=== PATIENT | male | born 1995 | race Caucasian/White ===

== ENCOUNTER 2016-11-22 09:01 | Emergency (ER) | payer SELFPAY | END 2016-11-22 09:40 | disposition home or self-care (01) | LOC: SCSER 09:01 | DX: J02.9 Acute pharyngitis, unspecified (principal); I49.9 Cardiac arrhythmia, unspecified; I48.91 Unspecified atrial fibrillation; I10 Essential (primary) hypertension; Z87.891 Personal history of nicotine dependence | CPT/HCPCS: 87081; 87430; 99283 ==

== ENCOUNTER 2018-03-15 07:35 | Outpatient (CLI) | payer OTHER ==
[2018-03-15 16:50] LABS: #Basophils 0.1 thou/uL (0.0-0.2); #Eosinphils 0.2 thou/uL (0.0-0.7); #Lymphocytes 2.6 thou/uL (1.20-3.40); #Monocytes 0.4 thou/uL (0.11-0.59); #Neutrophils 4.9 thou/uL (1.40-6.50); %Basophils 0.9 % (0.0-1.0); %Eosinophils 1.9 % (0.0-10.0); %Lymphocytes 32.2 % (21.0-51.0); %Monocytes 5.3 % (0.0-10.0); %Neutrophils 59.8 % (42.0-75.0); Hemoglobin 15.5 g/dL (14.0-18.0); Mean Corpuscular HGB CONC 34.7 g/dL (32.0-36.0); Mean Corpuscular Hemoglobin 31.1 pg (27.0-31.0); Mean Corpuscular Volume 89.4 fL (78.0-98.0); Mean Platelet Volume 6.6 fL (7.4-10.4); Platelet Count 266 thou/uL (130-400); RBC Distribution Width 11.4 % (11.5-14.5); Red Blood Cell (RBC) Count 4.98 mill/uL (4.70-6.10); White Blood Cell (WBC) Count 8.1 thou/uL (4.8-10.8)
[2018-03-15 17:10] LABS: Anion Gap 10 mmol/L (10-20); BUN (Urea Nitrogen) 14 mg/dL (8.9-20.6); Calc. Creatinine Clearance 0 mL/min (70-130); Carbon Dioxide 28 mmol/L (22-29); Chloride 105 mmol/L (98-107); Estimated GFR-MDRD 58; Glucose 101 mg/dL (70-105); Potassium 4.2 mmol/L (3.5-5.1); Sodium 139 mmol/L (136-145)
== END 2018-03-15 07:36 | disposition home or self-care (01) ==
LOC: LABBT 07:35
PROVIDERS: ATTEND Specialist
DX: Z01.812 Encounter for preprocedural laboratory examination (principal); L05.91 Pilonidal cyst without abscess; L72.3 Sebaceous cyst
CPT/HCPCS: 80048; 85025

== ENCOUNTER 2018-03-19 11:53 | Day surgery (SDC) | payer OTHER ==
--- NOTE | 2018-03-15 15:02 | HP ---
ADDENDUM: This is an addendum to 12/27/2017 history and physical #[id number]. HISTORY OF PRESENT ILLNESS: Jose Craven is a 22-year-old male, who has a long history of pilonidal cyst disease and also has umbilical cyst. He has had recurrent episodes and since I last saw him in December, he has had recurrent episodes of drainage. He drained by himself on one occasion. Plan is for pilonidal cyst resection, Z-plasty closure and umbilical cyst resection. He understands risks and benefits of procedure and consents. PAST MEDICAL HISTORY: Pilonidal cyst drainage, times released 4. MEDICATIONS: None. PAST SURGICAL HISTORY: Noncontributory. SOCIAL HISTORY: Tobacco, half pack a day. Alcohol, none. Drug use, none. PHYSICAL EXAMINATION: VITAL SIGNS: Weight 222 pounds, 6 feet tall, 30 BMI. HEAD, EARS, EYES, NOSE AND THROAT: Unremarkable. LUNGS: Clear to auscultation. CARDIAC: Regular rate and rhythm without murmur or gallop. ABDOMEN: Soft and nontender. EXTREMITIES: Unremarkable. Presacral area reveals multiple sinuses and nodules consistent with some in the midline, some off midline, all consistent with pilonidal cyst disease. Abdomen reveals umbilical cyst, tender with a knot in the depths of the umbilicus. ASSESSMENT AND PLAN: 1. Umbilical cyst. This periodically drains bloody purulent material. We will plan to excise this under general anesthesia. We will repair hernia without mesh if indicated. 2. Pilonidal cyst disease. Plan excision with Z-plasty closure. He will be off for at least 2 to 3 weeks. He will minimize activities afterwards. He understands the risks and benefits, and consents. Job ID: [id number]
[2018-03-15 16:46] VITALS: BMI 30.5
[2018-03-19] MEDS ORDERED: CEFAZOLIN 2 GM/50 ML BAG ONE (13:03)
[2018-03-19] MEDS ORDERED: Bupivacaine HCl 0.5%/Epinephrine 1:200,000/PF 30 ml Vial ONE ×2 (15:43→15:59)
[2018-03-19] MEDS ORDERED: Fentanyl 100 MCG/2 ML VIAL ONE ×3 (15:49→18:33)
[2018-03-19] MEDS ORDERED: Lidocaine 1% w/Epinephrine 1:100K 20 ML VIAL ONE (16:12)
[2018-03-19] MEDS ORDERED: Rocuronium Bromide 10 MG/ML (10ML VIAL) ONE (16:47)
[2018-03-19] MEDS ORDERED: Ketorolac Tromethamine 30 MG/ML VIAL ONE (16:47)
[2018-03-19] MEDS ORDERED: PROPOFOL 200 MG/20 ML VIAL ONE (16:47)
[2018-03-19] MEDS ORDERED: Ondansetron PF 4 MG/2 ML Vial ONE (16:47)
[2018-03-19] MEDS ORDERED: Lidocaine 1% PF 5 ML VIAL ONE (16:47)
[2018-03-19] MEDS ORDERED: Glycopyrrolate 0.2 MG/ML 5 ML SYRINGE ONE (16:47)
--- NOTE | 2018-03-19 18:14 | OP ---
DATE OF PROCEDURE: 03/19/2018 PREOPERATIVE DIAGNOSES: Pilonidal cyst, umbilical cyst. POSTOPERATIVE DIAGNOSES: Pilonidal cyst, umbilical cyst. PROCEDURE PERFORMED: Resection of pilonidal cyst with Z-plasty closure, umbilical cyst resection with umbilicoplasty. ANESTHESIA: General, local 0.5% Marcaine with epinephrine 30 mL mixed with 1% Xylocaine with epinephrine 30 mL, total volume used. DESCRIPTION OF PROCEDURE: The patient was taken to the operating room under general anesthesia in the prone position. Presacral area was clipped of hair, prepared with ChloraPrep, and draped in routine fashion. An elliptical incision was made to excise the pilonidal cyst disease. Hemostasis gained with the cautery. Dissection was carried down through skin and subcutaneous tissue to excise disease. Complete excision performed. Markings were made for Z-plasty closure and wound was closed after placing a drain in the subcutaneous tissues bringing out the right buttock, secured with 3-0 nylon, Mastisol, and op-site dressing. Good hemostasis obtained. Subcutaneous tissues approximate with 3-0 and 2-0 Monocryl, skin with continuous suture of 4-0 Monocryl and Dermabond applied. Local anesthetic was infiltrated into the skin and subcutaneous tissue about the wound for postoperative pain control. After the Dermabond dried, the patient was then turned into the supine position and umbilical area was clipped of hair, prepared with ChloraPrep, and draped in routine fashion. An incision made infraumbilical and then umbilicus excised from skin and subcutaneous tissue down the fascia. Very small defect 3 to 4 mm noted and closed with interrupted suture of 0 PDS pop-offs. Wound irrigated. Hemostasis gained with cautery. Subcutaneous tissue was approximated with 3-0 Monocryl and skin with subdermal 4-0 Monocryl form an umbilicoplasty and Dermabond applied. Local anesthetic was infiltrated in to the skin and subcutaneous tissue for postoperative pain control. The patient tolerated the procedure well. Job ID: [id number]
[2018-03-19] MEDS ORDERED: HYDROcodone/Acetaminophen 5/325 mg Tablet ONE (19:19)
== END 2018-03-19 20:00 | disposition home or self-care (01) ==
LOC: SDC 11:53
PROVIDERS: ATTEND Specialist
PROC: 0JB90ZZ Excision of Buttock Subcutaneous Tissue and Fascia, Open Approach (ICD-10-PCS; principal; 2018-03-19)
PROC: 0WBF0ZZ Excision of Abdominal Wall, Open Approach (ICD-10-PCS; principal; 2018-03-19)
DX: L05.91 Pilonidal cyst without abscess (principal); R19.05 Periumbilic swelling, mass or lump; F17.210 Nicotine dependence, cigarettes, uncomplicated; Z79.2 Long term (current) use of antibiotics; Z98.890 Other specified postprocedural states
CPT/HCPCS: 88304; J0131; J0670; J1885; J2001; J2405; J2704; J3010; Q9968

== ENCOUNTER 2019-12-10 11:13 | Emergency (ER) | payer SELFPAY | END 2019-12-10 11:50 | disposition home or self-care (01) | LOC: ERS 11:13 | DX: K02.9 Dental caries, unspecified (principal); I49.9 Cardiac arrhythmia, unspecified; I48.91 Unspecified atrial fibrillation; I10 Essential (primary) hypertension; F20.9 Schizophrenia, unspecified; F17.210 Nicotine dependence, cigarettes, uncomplicated | CPT/HCPCS: 99282 ==

== ENCOUNTER 2024-09-29 13:55 | Emergency (ER) | payer OTHER, SELFPAY | END 2024-09-29 15:38 | LOC: ERS 13:55 | DX: Z53.21 Procedure and treatment not carried out due to patient leaving prior to being seen by health care provider (principal) ==

== ENCOUNTER 2024-12-29 19:17 | Emergency (ER) | payer SELFPAY ==
[2024-12-29 23:00] LABS: Bacteria/HPF None Seen HPF (None Seen); CAUTI Indications for Culture Alt mental st,lethar; Glucose, Urine (Dipstick) Normal (Negative); Leukocyte Negative Leu/uL (Negative); Protein, Urine (Dipstick) Negative (Neg-Trace); RBC/HPF None Seen HPF (0-3); Specific Gravity, Urine 1.009 (1.002-1.036); WBC/HPF 0-3 HPF (0-3)
[2024-12-29 23:08] LABS: Urine Culture Reflex No No
== END 2024-12-30 00:14 ==
LOC: EEVIPCON 19:17 → ERS 19:17
DX: N49.2 Inflammatory disorders of scrotum (principal); I10 Essential (primary) hypertension; Z55.6 Problems related to health literacy
CPT/HCPCS: 76870; 81001; 93976; 96372

== ENCOUNTER 2024-12-31 17:37 | Emergency (ER) | payer SELFPAY ==
[~2024-12-31 17:37] MED LIST: Iopamidol-370 76% 500 ML MDV (1 ML CHARGE) ONE
[2024-12-31 20:59] LABS: #Basophils 0.05 10x3/uL (0.0-0.2); #Eosinophils 0.20 10x3/uL (0.0-0.7); #Monocytes 0.31 10x3/uL (0.11-0.59); #Neutrophils 2.48 10x3/uL (1.40-6.50); %Basophils 1.0 % (0.0-1.0); %Eosinophils 4.0 % (0.0-10.0); %Lymphocytes 38.7 % (21.0-51.0); %Monocytes 6.2 % (0.0-10.0); %Neutrophils 49.7 % (42.0-75.0); Hematocrit 39.2 % (42.0-52.0); Hemoglobin 13.7 g/dL (14.0-18.0); Mean Corpuscular Hemoglobin 29.7 pg (27.0-31.0); Mean Corpuscular Volume 85.0 fL (78.0-98.0); Platelet Count 255 10x3/uL (130-400); Red Blood Cell (RBC) Count 4.61 mill/uL (4.70-6.10); White Blood Cell (WBC) Count 4.99 10x3/uL (4.8-10.8)
[2024-12-31 21:13] LABS: ALT (SGPT) 109 U/L (Less than 45); AST (SGOT) 102 U/L (11-34); Albumin 4.4 g/dL (3.1-4.5); Alkaline Phosphatase 71 U/L (40-110); Anion Gap 14 mmol/L (10-20); BUN (Urea Nitrogen) 10 mg/dL (8.9-20.6); Bilirubin, Total 0.4 mg/dL (0.3-1.2); Calc. Creatinine Clearance 0 mL/min (70-130); Calcium 9.5 mg/dL (7.8-10.44); Carbon Dioxide 27 mmol/L (22-29); Chloride 107 mmol/L (98-107); Globulin 2.5 g/dL (2.4-3.5); Glucose 89 mg/dL (70-105); INR-International Normal Ratio 0.9; Lipase 30 U/L (8-78); PTT 35.2 sec (22.9-36.1); Potassium 3.9 mmol/L (3.5-5.1); Prothrombin Time 12.2 sec (12.0-14.7); Sodium 144 mmol/L (136-145)
[2024-12-31 21:27] LABS: Bacteria/HPF None Seen HPF (None Seen); CAUTI Indications for Culture Pelvic or flank pain; Glucose, Urine (Dipstick) Normal (Negative); Leukocyte Negative Leu/uL (Negative); Protein, Urine (Dipstick) Negative (Neg-Trace); RBC/HPF None Seen HPF (0-3); Specific Gravity, Urine 1.008 (1.002-1.036); WBC/HPF None Seen HPF (0-3)
[2024-12-31 21:33] LABS: Urine Culture Reflex No No
[2024-12-31 23:58] LABS: Chlam.trachomatis by PCR,Urine Not Detected (NotDetected); GC N.gonorrhoeae PCR,UrineVOID Not Detected (NotDetected)
== END 2024-12-31 23:05 ==
LOC: EEVIPCON 17:37 → ERS 17:37
DX: N50.89 Other specified disorders of the male genital organs (principal); I10 Essential (primary) hypertension; Z55.6 Problems related to health literacy
CPT/HCPCS: 74177; 80053; 81001; 83605; 83690; 85025; 85610; 85730; 87491; 87591